=== PATIENT | male | born 1945 | race Caucasian/White ===

== ENCOUNTER 2018-09-28 10:54 | Outpatient (CLI) | payer MEDICARE, MEDICAID ==
--- NOTE | 2018-09-28 11:39 | RAD ---
TWO VIEW CHEST: History: Cough. Comparison: 02-27-10 FINDINGS: Interstitial markings are mildly prominent in the mid and lower lung worthy. There is no confluent in filtrate or effusion. Heart size is normal. Mild degenerative spine changes are seen. IMPRESSION: No focal infiltrate. Mild increased interstitial markings of uncertain significance. POS: [facility]
== END 2018-09-28 10:55 | disposition home or self-care (01) ==
LOC: MADRAD 10:54
PROVIDERS: ATTEND Obstetrics & Gynecology
DX: R05 Cough (principal)
CPT/HCPCS: 71046

== ENCOUNTER 2019-04-29 08:54 | Outpatient (CLI) | payer MEDICARE, MEDICAID ==
--- NOTE | 2019-04-29 09:34 | RAD ---
Radiograph abdomen one view: DATE: 04/29/2019 HISTORY: 73-year-old male with generalized abdominal pain FINDINGS: Gas in several nondilated loops of colon and gas in prominent but nondilated loops of small intestine . 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 IMPRESSION: 1. Nonspecific bowel gas pattern. 2. Endograft treatment of abdominal aortic aneurysm.
[2019-04-29 13:26] LABS: #Eosinphils 0.1 thou/uL (0.0-0.7); #Lymphocytes 0.7 thou/uL (1.20-3.40); #Monocytes 0.5 thou/uL (0.11-0.59); #Neutrophils 5.2 thou/uL (1.40-6.50); %Basophils 0.4 % (0.0-1.0); %Eosinophils 0.8 % (0.0-10.0); %Lymphocytes 11.2 % (21.0-51.0); %Neutrophils 80.7 % (42.0-75.0); Hemoglobin 13.1 g/dL (14.0-18.0); Mean Corpuscular HGB CONC 32.8 g/dL (32.0-36.0); Mean Corpuscular Hemoglobin 31.6 pg (27.0-31.0); Mean Corpuscular Volume 96.4 fL (78.0-98.0); Mean Platelet Volume 6.4 fL (7.4-10.4); Platelet Count 93 thou/uL (130-400); RBC Distribution Width 13.5 % (11.5-14.5); Red Blood Cell (RBC) Count 4.16 mill/uL (4.70-6.10); White Blood Cell (WBC) Count 6.5 thou/uL (4.8-10.8)
[2019-04-29 13:44] LABS: Platelet Morphology Comment Appears Decreased
[2019-04-29 13:45] LABS: ALT (SGPT) 27 U/L (8-55); AST (SGOT) 32 U/L (5-34); Albumin 3.3 g/dL (3.4-4.8); Alkaline Phosphatase 116 U/L (40-150); Anion Gap 12 mmol/L (10-20); BUN (Urea Nitrogen) 15 mg/dL (8.4-25.7); Bilirubin, Total 2.8 mg/dL (0.2-1.2); Calc. Creatinine Clearance 0 mL/min (70-130); Calcium 8.9 mg/dL (7.8-10.44); Carbon Dioxide 27 mmol/L (23-31); Cardiac Risk 3.1 (Less than 4.5); Chloride 107 mmol/L (98-107); Cholesterol 191 mg/dl (< 200 Desired); Estimated GFR-MDRD Greater than 90; Globulin 2.9 g/dL (2.4-3.5); Glucose 91 mg/dL (83-110); HDL Cholesterol 62 mg/dL (>60 Neg Risk); LDL Cholesterol, Calculated 113 mg/dL; Potassium 4.1 mmol/L (3.5-5.1); Protein, Total 6.2 g/dL (5.8-8.1); Sodium 142 mmol/L (136-145); Triglycerides 78 mg/dL (Less than 150)
[2019-04-29 16:52] LABS: Hemoglobin A1c 4.5 % (4.0-6.0)
== END 2019-04-29 08:55 | disposition home or self-care (01) ==
LOC: MADRAD 08:54
PROVIDERS: ATTEND Family Medicine
DX: K59.00 Constipation, unspecified (principal); R14.0 Abdominal distension (gaseous); E80.6 Other disorders of bilirubin metabolism; D69.6 Thrombocytopenia, unspecified; E78.5 Hyperlipidemia, unspecified; E11.9 Type 2 diabetes mellitus without complications; I71.4 Abdominal aortic aneurysm, without rupture
CPT/HCPCS: 36415; 74018; 80053; 80061; 83036; 85025

== ENCOUNTER 2019-05-03 09:58 | Outpatient (CLI) | payer MEDICARE, MEDICAID ==
--- NOTE | 2019-05-03 12:53 | ULT ---
ABDOMINAL ULTRASOUND: HISTORY: Abdominal pain and distention. History of cirrhosis and COPD. The exam was technically limited due to patient's shortness of breath. Real-time imaging of the upper abdomen was performed. The gallbla dder has been removed. The common duct is in the 6-7 mm range. The liver has a cirrhotic appearance with some increased echogenicity to the liver with slightly nodular surface contour. It does not ap pear enlarged. Some minimal ascites is noted adjacent to the liver. The spleen is enlarged. It measures 15.4 cm in length. Pancreas is largely obscured as are portions of the abdominal aorta and IVC. Right and left kidneys are within normal limits of size and not obstructed. IMPRESSION: 1. Heterogeneous-appearing liver with cirrhotic-appearing change and some minimal ascites noted ac cent to the liver. 2. Splenomegaly. 3. Postop cholecystectomy change. POS: OFF
== END 2019-05-03 09:59 | disposition home or self-care (01) ==
LOC: MADULT 09:58
PROVIDERS: ATTEND Internal Medicine Nephrology
DX: K74.60 Unspecified cirrhosis of liver (principal); R10.9 Unspecified abdominal pain; R16.1 Splenomegaly, not elsewhere classified; Z90.49 Acquired absence of other specified parts of digestive tract
CPT/HCPCS: 76700

== ENCOUNTER 2020-09-02 11:49 | Emergency (ER) | payer MEDICARE, MEDICAID ==
--- NOTE | 2020-09-02 12:45 | RAD ---
EXAM: Chest one view: HISTORY: Chest pain, confusion COMPARISON: 08/25/2020 FINDINGS: Heart size: Within normal limits. Lungs: Clear of acute process. No evidence for confluent lobar pneumonia, significant pleural effusion, acute edema, or pneumothorax , or other significant acute process. IMPRESSION: No significant acute intrathoracic disease. Stable exam.
[2020-09-02 12:46] LABS: #Basophils 0.1 thou/uL (0.0-0.2); #Eosinphils 0.2 thou/uL (0.0-0.7); #Lymphocytes 1.2 thou/uL (1.20-3.40); #Monocytes 1.4 thou/uL (0.11-0.59); #Neutrophils 9.2 thou/uL (1.40-6.50); %Eosinophils 1.3 % (0.0-10.0); %Monocytes 11.6 % (0.0-10.0); %Neutrophils 76.2 % (42.0-75.0); Hemoglobin 13.6 g/dL (14.0-18.0); Mean Corpuscular HGB CONC 34.1 g/dL (32.0-36.0); Mean Corpuscular Hemoglobin 31.1 pg (27.0-31.0); Mean Corpuscular Volume 91.1 fL (78.0-98.0); Mean Platelet Volume 6.1 fL (7.4-10.4); Platelet Count 146 thou/uL (130-400); RBC Distribution Width 16.3 % (11.5-14.5); Red Blood Cell (RBC) Count 4.36 mill/uL (4.70-6.10); White Blood Cell (WBC) Count 12.1 thou/uL (4.8-10.8)
--- NOTE | 2020-09-02 12:51 | CT ---
CT head noncontrast HISTORY: Altered mental status. Confusion. COMPARISON: 07/25/2020. FINDINGS: There is no evidence of acute intracranial hemorrhage or infarct. The ventricles appear nor mal in size, shape and position. There is no mass effect or shift of midline structures. Visualized paranasal sinuses remain well-aerated. IMPRESSION : No abnormalities are demonstrated.
[2020-09-02 13:00] LABS: ALT (SGPT) 34 U/L (8-55); AST (SGOT) 27 U/L (5-34); Albumin 3.8 g/dL (3.4-4.8); Alkaline Phosphatase 109 U/L (40-110); Anion Gap 17 mmol/L (10-20); BUN (Urea Nitrogen) 32 mg/dL (8.4-25.7); Bilirubin, Total 2.2 mg/dL (0.2-1.2); Calc. Creatinine Clearance 0 mL/min (70-130); Calcium 10.1 mg/dL (7.8-10.44); Carbon Dioxide 23 mmol/L (23-31); Chloride 103 mmol/L (98-107); Globulin 3.2 g/dL (2.4-3.5); Glucose 110 mg/dL (83-110); Potassium 5.3 mmol/L (3.5-5.1); Sodium 138 mmol/L (136-145)
[2020-09-02] MEDS ORDERED: Ondansetron PF 4 MG/2 ML Vial ONE (13:10)
[2020-09-02 13:15] LABS: Bilirubin Negative (Negative); Blood, Urine Moderate (Negative); Glucose, Urine (Dipstick) Negative (Negative); Ketone, Urine Negative (Negative); Leukocyte Negative (Negative); Nitrite Negative (Negative); Protein, Urine (Dipstick) Negative (Neg-Trace); Specific Gravity, Urine 1.025 (1.005-1.030)
[2020-09-02 13:17] LABS: Clarity Hazy (Clear)
[2020-09-02 13:21] LABS: Bacteria/HPF Rare-Few HPF (None Seen); Squamous Epithelial 0-3 HPF (0-3); WBC/HPF 0-3 HPF (0-3)
[2020-09-02] MEDS ORDERED: Aspirin Chewable 81 MG TAB ONE (14:59)
== END 2020-09-02 17:04 | disposition short-term general hospital (02) ==
LOC: MADERS 11:49
DX: R42 Dizziness and giddiness (principal); R41.82 Altered mental status, unspecified; R07.9 Chest pain, unspecified; E11.9 Type 2 diabetes mellitus without complications; E78.5 Hyperlipidemia, unspecified; I10 Essential (primary) hypertension; J44.9 Chronic obstructive pulmonary disease, unspecified; Z87.891 Personal history of nicotine dependence; Z79.899 Other long term (current) drug therapy
CPT/HCPCS: 70450; 71045; 80053; 81003; 81015; 83735; 83880; 84443; 84484; 85025; 93005; 96374; J2405

== ENCOUNTER 2020-09-20 12:39 | Outpatient (CLI) | payer MEDICARE, MEDICAID ==
--- NOTE | 2020-09-20 14:22 | RAD ---
TWO VIEW CHEST: HISTORY: COPD. COMPARISON: 09/28/2018. FINDINGS: Lungs appear clear. No infiltrate or vascular congestion. Heart and mediastinum appear normal. Oss eous structures unremarkable. IMPRESSION: No acute process. POS: [facility]
== END 2020-09-20 12:40 | disposition home or self-care (01) ==
LOC: MADRAD 12:39
PROVIDERS: ATTEND Family Medicine
DX: J44.9 Chronic obstructive pulmonary disease, unspecified (principal)
CPT/HCPCS: 71046